=== PATIENT | male | born 1930 | race Caucasian/White ===

== ENCOUNTER → 2016-08-13 | Outpatient (CLI) | payer MEDICARE, BC | LOC: GMAL 11:20 | PROVIDERS: ATTEND Family Medicine | DX: D53.9 Nutritional anemia, unspecified (principal) ==

== ENCOUNTER → 2016-08-23 | Outpatient (CLI) | payer MEDICARE | END | disposition home or self-care (01) | LOC: GMAL 18:12 | PROVIDERS: ATTEND Family Medicine | DX: R33.9 Retention of urine, unspecified (principal) ==

== ENCOUNTER → 2016-11-14 | Outpatient (CLI) | payer MEDICARE | LOC: GMAL 10:34 | PROVIDERS: ATTEND Family Medicine | DX: E55.9 Vitamin D deficiency, unspecified (principal) ==

== ENCOUNTER → 2016-12-05 | Outpatient (CLI) | payer MEDICARE | END | disposition home or self-care (01) | LOC: GMAL 10:34 | PROVIDERS: ATTEND Family Medicine | DX: D53.9 Nutritional anemia, unspecified (principal) ==

== ENCOUNTER → 2016-12-20 | Outpatient (CLI) | payer MEDICARE | END | disposition home or self-care (01) | LOC: GMAL 10:42 | PROVIDERS: ATTEND Family Medicine | DX: D51.3 Other dietary vitamin B12 deficiency anemia (principal); E55.9 Vitamin D deficiency, unspecified ==

== ENCOUNTER → 2017-01-14 | Outpatient (CLI) | payer MEDICARE | END | disposition home or self-care (01) | LOC: GMAL 14:04 | PROVIDERS: ATTEND Family Medicine | DX: D53.9 Nutritional anemia, unspecified (principal) ==

== ENCOUNTER 2017-04-03 18:20 | Inpatient (IN) | payer MEDICARE ==
--- NOTE | 2017-04-03 19:31 | ED.PDOC ---
History of Present Illness - General Chief Complaint: General Stated Complaint: generalized weakness Time Seen by Provider: 04/03/17 18:21 Source: patient, RN notes reviewed, Vital Signs reviewed, family - Exam Limitations: no limitations - History of Present Illness Initial Comments: Patient is a poor historian. He reports progressively worsening weakness over the past week. Reports before EMS came to his house his daughter had to call people over to get him up off the floor. Unclear exactly how he ended up on the floor. Reports he was using his walker and just could not pick it up and move it any more. Denies a fall or injuries. reports he was slurring his words and unable to finish his sentences while on the phone with his daughter. He reports chronic anemia. He is scheduled to get a procrit shot tomorrow. Review of his chart also shows frequent urinary tract infections. Timing/Duration: 1 week, getting worse Severity: severe Improving Factors: nothing Worsening Factors: movement Associated Symptoms: cough, fever/chills, loss of appetite, malaise, weakness Allergies/Adverse Reactions: Allergies Morphine Allergy (Verified 03/30/16 12:07) Penicillin G Allergy (Verified 03/30/16 12:07) Procaine [From Novocain] Allergy (Verified 03/30/16 12:07) Home Medications: Ambulatory Orders Allopurinol [Zyloprim] 40 mg PO DAILY 03/29/16 Aspirin [Aspirin Childrens] 81 mg PO DAILY 03/29/16 Diltiazem HCl 150 mg PO BEDTIME 03/29/16 Fe Fum-Iron Polysacch Complex- [Tandem Plus] 1 cap PO BARRY-OTH-03/29/16 Metoprolol Succinate [Metoprolol Succinate ER] 50 mg PO DAILY 03/29/16 Review of Systems - Review of Systems Constitutional: States: chills, fever, malaise, weakness EENTM: States: no symptoms reported Respiratory: States: cough. Denies: short of breath, stridor Cardiology: States: no symptoms reported. Denies: chest pain Gastrointestinal/Abdominal: States: no symptoms reported. Denies: nausea, vomiting Genitourinary: States: no symptoms reported Musculoskeletal: States: no symptoms reported Skin: States: no symptoms reported Neurological: States: see HPI. Denies: headache All other Systems: No Change from Baseline Past Medical History (General) - Patient Medical History Hx Seizures: No Hx Stroke: No Hx Dementia: No Hx Asthma: No Hx of COPD: No Hx Cardiac Disorders: Yes Hx Congestive Heart Failure: No Hx Pacemaker: No Hx Hypertension: Yes Hx Thyroid Disease: No Hx Diabetes: No Hx Gastroesophageal Reflux: No Hx Renal Disease: No Hx Cancer: Yes - Prostate Cancer Hx of HIV: No Hx Hepatitis C: No Hx MRSA: No MRSA Source:: Wound - Vaccination History Hx Tetanus, Diphtheria Vaccination: Yes Hx Influenza Vaccination: Yes Hx Pneumococcal Vaccination: Yes - Social History Hx Tobacco Use: Yes Hx Chewing Tobacco Use: No Hx Alcohol Use: No Hx Substance Use: No Hx Substance Use Treatment: No Hx Depression: No Feels Threatened In Home Enviroment: No Feels Threatened In a Relationship: No Hx Physical Abuse: No Hx Emotional Abuse: No Hx Suspected Abuse: No Family Medical History - Family History Father Family History: Unknown Living Status: Physical Exam - Physical Exam General Appearance: Alert, Frail, Ill Appearing, Well Developed, Well Groomed, Well Nourished Neck: non-tender, supple, normal inspection Respiratory: chest non-tender, no respiratory distress, no accessory muscle use , rhonchi, wheezing Cardiovascular/Chest: no gallop, no murmur, irregularly irregular - Denies hx of A. fib but reports long hx of an irregular heart rhythm Gastrointestinal/Abdominal: normal bowel sounds, non tender, soft, no organomegaly, no pulsatile mass Extremity: normal inspection Neurologic: alert, normal mood/affect, oriented x 3 Skin Exam: normal color, warm/dry Comments: Vital Signs 04/03/17 18:22 Temperature 101.8 F H Pulse Rate [ 96 H monitor] Respiratory 16 Rate Blood Pressure 184/93 [Left Arm] O2 Sat by Pulse 90 L Oximetry Progress - Progress Progress: 04/03/17 23:14 Discussed patient with Ela Marin NP - will admit for pneumonia - Results/Orders Results/Orders: Laboratory Tests 04/03/17 04/03/17 04/03/17 18:12 18:12 20:01 WBC 21.9 H* RBC 2.54 L Hgb 9.0 L Hct 28.0 L MCV 110.1 H MCH 35.4 H MCHC 32.2 L RDW 15.5 H Plt Count 267 MPV 7.7 Absolute Neuts (auto) Not Reportable Absolute Lymphs (auto) Not Reportable Absolute Monos (auto) Not Reportable Absolute Eos (auto) Not Reportable Neutrophils % Not Reportable Neutrophils % (Manual) 68.0 Lymphocytes % Not Reportable Lymphocytes % (Manual) 7.0 Monocytes % Not Reportable Monocytes % (Manual) 10.0 Eosinophils % Not Reportable Basophils % Not Reportable Band Neutrophils 15.0 Platelet Estimate Normal Macrocytosis 1+ Sodium 135 Potassium 3.2 L Chloride 99 L Carbon Dioxide 24 Anion Gap 15.2 BUN 38 H Creatinine 1.75 H BUN/Creatinine Ratio 21.7 H Random Glucose 135 H Serum Osmolality 281.2 Lactic Acid 1.7 Calcium 8.8 Total Bilirubin 0.7 AST 40 ALT 14 Alkaline Phosphatase 68 Serum Total Protein 9.1 H Albumin 3.4 Globulin 5.7 H Albumin/Globulin Ratio 0.6 L Urine Color Urine Appearance Urine pH Ur Specific [place] Urine Protein Urine Glucose (UA) Urine Ketones Urine Blood Urine Nitrite Urine Bilirubin Urine Urobilinogen Ur Leukocyte Esterase Urine RBC Urine WBC Ur Epithelial Cells Urine Bacteria 04/03/17 22:35 WBC RBC Hgb Hct MCV MCH MCHC RDW Plt Count MPV Absolute Neuts (auto) Absolute Lymphs (auto) Absolute Monos (auto) Absolute Eos (auto) Neutrophils % Neutrophils % (Manual) Lymphocytes % Lymphocytes % (Manual) Monocytes % Monocytes % (Manual) Eosinophils % Basophils % Band Neutrophils Platelet Estimate Macrocytosis Sodium Potassium Chloride Carbon Dioxide Anion Gap BUN Creatinine BUN/Creatinine Ratio Random Glucose Serum Osmolality Lactic Acid Calcium Total Bilirubin AST ALT Alkaline Phosphatase Serum Total Protein Albumin Globulin Albumin/Globulin Ratio Urine Color Yellow Urine Appearance Clear Urine pH 5.5 Ur Specific [place] 1.015 Urine Protein 100 H Urine Glucose (UA) Negative Urine Ketones Negative Urine Blood Moderate H Urine Nitrite Negative Urine Bilirubin Negative Urine Urobilinogen 0.2 Ur Leukocyte Esterase Negative Urine RBC 3-5 H Urine WBC 0 Ur Epithelial Cells 0-1 Urine Bacteria Rare - EKG/XRAY/CT EKG: Atrial, Fibrillation, nonspecific ST T wave Chg Comments: Rate 95 XRAY: chest - Moderate infiltrate/atelectasis L lingula and LLL per Radiologist Departure - Departure Clinical Impression: Pneumonia Qualifiers: Pneumonia type: due to unspecified organism Laterality: left Lung location: lower lobe of lung Qualified Code(s): J18.1 - Lobar pneumonia, unspecified organism Time of Disposition: 23:15 Disposition: Admit Patient Condition: Poor Departure Forms: ED Discharge - Pt. Copy, Patient Portal Self Enrollment Referrals: Ari Moya III, MD [Primary Care Provider] - 1-2 Weeks Home Medications: Ambulatory Orders Allopurinol [Zyloprim] 40 mg PO DAILY 03/29/16 Aspirin [Aspirin Childrens] 81 mg PO DAILY 03/29/16 Diltiazem HCl 150 mg PO BEDTIME 03/29/16 Fe Fum-Iron Polysacch Complex- [Tandem Plus] 1 cap PO BARRY-OTH-DAY 03/29/16 Metoprolol Succinate [Metoprolol Succinate ER] 50 mg PO DAILY 03/29/16 Decision To Admit - Decistion To Admit Decision to Admit Reason: Admit from ER - Pneumonia Decision to Admit Date: 04/03/17 Decision to Admit Time: 23:03
[2017-04-03] MEDS ORDERED: ACETAMINOPHEN 500 MG TAB PO ONE (19:36)
--- NOTE | 2017-04-03 19:55 | RAD ---
PROCEDURE: Chest,2 Views CLINICAL HISTORY: cough/fever INDICATION: Same as above COMPARISON: 10/19/2009 TECHNIQUE: PA and and lateral chest radiographs were obtained. FINDINGS: There is presence of median sternotomy. Stable elevation of the left hemidiaphragm is noted. There is presence of moderate size infiltrate/atelectasis in the lingula of the left lung and the left lower lobe of the lung There are no pneumothoraces or pleural effusions. The pulmonary vascularity is normal The cardiomediastinal silhouette is unremarkable for patient's age and sex. IMPRESSION: There is presence of moderate size infiltrate/atelectasis in the lingula of the left lung and the left lower lobe of the lung Electronically signed by: Aubrey Gonzalez MD 04/03/2017 7:54 PM CDT Workstation: [id number]
[2017-04-03] MEDS ORDERED: SODIUM CHLORIDE 0.9% 1000ML 1,000 ML IVS PRN (20:27)
[2017-04-03] MEDS ORDERED: SODIUM CHLORIDE 0.9% 1000ML 1,000 ML ONE (20:28)
--- NOTE | 2017-04-03 23:26 | HP ---
SUPERVISING PHYSICIAN: Irving Clements M.D. CHIEF COMPLAINT: Extreme weakness. HISTORY OF PRESENT ILLNESS: This is an 86 year-old male patient who approximately 5:00 PM on the date of admission had a slight change in his mental status. His reported that he spoke very slowly and his words were not very clear. He has had multiple episodes of slurred/garbled speech over the last few months as reported by patient's daughter. He had a complaint of weakness for a week or two as well as poor oral intake and anorexia. The extreme weakness has progressively worsened over the last several days. He also complained of some upper respiratory symptoms with a productive cough and nasal drainage. He had some chest congestion and stated he just has felt poorly over the last few weeks and it had progressively worsened to the point yesterday where they brought him to the Emergency Room. He does have a history of chronic anemia as well as frequent urinary tract infections with hematuria and multidrug resistant urinary tract infections. In the Emergency Room, it was difficult to get a history from him and he was given several liters of fluids. Initially he did not urinate for several hours. There was an attempt to pass a catheter which was unsuccessful, but at some point he was able to give them a urine specimen. The urinalysis showed 100 urine protein, moderate urine blood and 3 to 5 urine RBCs. The remainder of the urinalysis was negative. He had 101.8 fever. His blood pressure was 184/93, oxygen saturation was 90% on 2 liters nasal cannula. Chest x-ray per radiology interpretation showed the presence of a moderate sized infiltrate, atelectasis in the lingula of the left lung and the left lower lobe of the lung. WBCs were elevated at 21,900 with an H&H of 9.0 and 28. Sodium 135, potassium 3.2, chloride 99, BUN 38, creatinine 1.75, glucose 135. Lactic acid was 1.7. Blood cultures were drawn. His mental status improved slightly. I was called for hospital admission. PAST MEDICAL HISTORY: 1. Hypertension. 2. Indigestion. 3. Chronic anemia on Procrit. 4. Frequent urinary tract infections. 5. Chronic hematuria followed by Dr. Flowers, urologist. 6. Atrial fibrillation. 7. Gout. 8. Essential tremors. PAST SURGICAL HISTORY: 1. Coronary artery bypass graft. OUTPATIENT MEDICATIONS: Per the EMR and awaiting verification. ALLERGIES: PENICILLIN AND MORPHINE. SOCIAL HISTORY: He is . He lives in [place]. He stopped smoking about 8 years ago. He denies any ETOH or illicit drug use. REVIEW OF SYSTEMS: Positive for fatigue and fever. Negative for weight changes. HEENT: Positive for sinus symptoms throat drainage. Negative for ear pain or vision changes. RESPIRATORY: Positive for coughing. Negative for wheezing and shortness of breath. CARDIAC: Negative for chest pain, tachycardia or palpitations. GASTROINTESTINAL: Positive for anorexia. Negative for abdominal pain, nausea, vomiting or diarrhea. GENITOURINARY: Positive for polyuria and hematuria. Negative for dysuria. SKIN: Negative for lesions or rashes. NEUROLOGIC: Positive for dizziness and weakness. Negative for seizures or headaches. PHYSICAL EXAMINATION: VITAL SIGNS: Temperature 97.6, pulse rate 85, blood pressure 155/85, respiratory rate 16. O2 sat is 93% on 2 liters nasal cannula. GENERAL: This is an 86 year-old male patient lying in his hospital bed. He is in no acute distress. HEENT: Normocephalic and atraumatic. Pupils are equal and reactive. Oropharynx is clear. Oral mucous membranes are dry. NECK: Supple without mass. CHEST: Scattered rhonchi throughout with an occasional expiratory wheeze in the left lower and mid lung. There is equal rise and fall of the chest with inspiration and expiration. CARDIOVASCULAR: Regular rate, slightly irregular rhythm. ABDOMEN: Soft, nondistended, non-tender. Bowel sounds are positive. EXTREMITIES: No cyanosis, clubbing or edema. NEUROLOGIC: He is awake, alert and oriented times three. SKIN: Warm and dry. No lesions or rashes noted. LABORATORY: Labs and films are as per the history of present illness. ASSESSMENT: 1. Sepsis, most likely due to left lower lobe pneumonia most likely community acquired pneumonia with concerns for Streptococcus pneumoniae. Temp of 101.8. HR 96 bpm. Respiratory rate of 24. Leukocytosis with a WBC of 21,900. 2. Febrile illness with temperature to 101.8. 3. Leukocytosis. 4. Significant history of multidrug resistant urinary tract infections as well as an extensive history of hematuria followed by Dr. Kevin Flowers, urologist. 5. Hematuria. 6. Altered mental status most likely due to #1 and #2. 7. Gastroesophageal reflux disease. 8. Hypertension. 9. History of atrial fibrillation. 10. New onset of slurred speech and TIA symptoms. PLAN: We will admit the patient to the hospital. He will be started on Levaquin antibiotics until his cultures are available. I have also ordered a sputum culture as well as culture on his urine. I have ordered a Xopenex treatment and will restart his home medications as soon as they are verified. Repeat the lab in the morning as well as a chest x-ray. We will give him some gentle fluids. He will be placed on a radiation monitor as well as oxygen as needed. I have started a PPI for ulcer prophylaxis as well as Lovenox for DVT prophylaxis. At some point will do a carotid sonogram due to TIA symptoms. I will continue to monitor the patient closely and follow as needed. Dr. Clements is the collaborating physician available for consultation. [facility][id number] [facility]
[2017-04-03] MEDS ORDERED: SODIUM CHLORIDE 0.9% (FLUSH) 10 ML SYG IV PRN (23:50)
[2017-04-03] MEDS ORDERED: LEVALBUTEROL NEBS 1.25 MG/3 ML VIAL NEB PRN (23:50)
[2017-04-04] MEDS: PANTOPRAZOLE SODIUM IV 40 MG VIAL IV SCH ×2 (00:05→23:23)
[2017-04-04] MEDS: ENOXAPARIN SODIUM 40 MG/0.4 ML SYG SUBCU SCH ×2 (00:05→23:33)
[2017-04-04] MEDS: levoFLOXacin 750MG IV 750 MG in PREMIX BAG 1 BAG IVPB SCH ×3 (00:14→23:26)
[2017-04-04] MEDS: IV SET AND CAP CHANGE INJ INJ SCH (00:14)
--- NOTE | 2017-04-04 07:20 | RAD ---
EXAM DESCRIPTION: Chest,1 View CLINICAL HISTORY: Pneumonia COMPARISON: April 03, 2017 IMPRESSION: Single AP portable upright view of the chest shows enlargement of the cardiac silhouette without pulmonary vascular congestion. Postsurgical changes from sternotomy. Elevation of the left hemidiaphragm is seen. Interstitial infiltrate or atelectasis in the left lower lobe is similar to previous exam. Continued follow-up is recommended. Right lung is clear. Electronically signed by: Jackson Rich MD 04/04/2017 7:19 AM CDT
[2017-04-04] MEDS: IPRATROPIUM/ALBUTEROL 3 ML VIAL NEB SCH ×2 (08:14→13:35)
[2017-04-04] MEDS: SODIUM CHLORIDE 0.9% (FLUSH) 10 ML SYG IV SCH ×2 (10:38→20:44)
[2017-04-04] MEDS ORDERED: NON-FORMULARY MEDICATION 1 EA MIS (Propranolol Hcl [Propranolol Hcl] 40 MG) PO SCH (11:45)
[2017-04-04] MEDS ORDERED: PROPRANOLOL HCL 20 MG TAB ONE (12:01)
[2017-04-04] MEDS: diltiaZEM HCL TAB 30 MG TAB PO SCH ×2 (12:06→20:41)
[2017-04-04] MEDS: ALLOPURINOL 300 MG TAB PO SCH (12:06)
--- NOTE | 2017-04-04 14:50 | PCM.CORE ---
Physician DVT/VTE - Prophylaxis Currently: Patient already on anticoagulation therapy - Nurse DVT Assessment & Total Each Risk Factor Represents 3 Points: Age over 75 years, Medical PT with Hx of NC, CHF, Severe infection/sepsis Each Risk Factor Represents 1 Point: Medical PT at Bed Rest DVT Assessment Score: 7 - 5 or more Very High Risk Treatments: Early Ambulation *, Sequential Compression Device
[2017-04-04] MEDS ORDERED: POTASSIUM CHLORIDE 20 MEQ TAB PO ONE (15:24)
[2017-04-04] MEDS: methylPREDNISolone SODIUM SUC 125 MG/2 ML VIAL IV SCH ×2 (17:12→23:13)
--- NOTE | 2017-04-04 17:13 | PN ---
DATE: 04/04/17 SUPERVISING PHYSICIAN: Irving Clements M.D. SUBJECTIVE: The patient is sitting up in his bed. He is talking to his family. His daughter and are at bedside. His daughter is concerned that he has had some slurred speech and weakness that started several months ago and is concerned that he may be having stroke-like symptoms. At this point, the patient has no slurred speech. We discussed at length stroke-like symptoms and we will monitor for that. He denies chest pain, nausea, vomiting or constipation. He does say that he is still coughing and it is a dry hacking cough. Otherwise he does feel some better. OBJECTIVE: VITAL SIGNS: He is afebrile, heart rate is irregular. It ranges from 77 to 97. Blood pressure 111/61, respiratory rate 24, O2 sat is 94%. RESPIRATORY: Scattered rhonchi throughout all lung willett with some expiratory wheezing in the left lower lung willett. CARDIAC: Regular rate, slightly irregular rhythm. ABDOMEN: Soft, nondistended, non-tender. Bowel sounds are positive. EXTREMITIES: No cyanosis, clubbing or edema. NEUROLOGIC: He is awake , alert and oriented times three. LABORATORY: WBCs have improved to 17,300. Hemoglobin is 8.2 and 25.3. Platelets are 227. Sodium 132, potassium 3.1, chloride 101, carbon dioxide 24, BUN 30, creatinine has improved to 1.16, glucose 96, serum osmolality 270.6, calcium 7.9. Sputum and urine culture are pending. Sputum gram stain shows many WBCs, many gram positive cocci in pairs and moderate gram-negative rods. Preliminary blood cultures are negative to date. Influenza A and B by PCR is negative. Chest x-ray per radiology interpretation upright view of the chest shows enlargement of the cardiac silhouette without pulmonary vascular congestion, post surgical changes from sternotomy, elevation of the left hemidiaphragm is seen, interstitial infiltrate or atelectasis in the left lower lobe similar to previous exam. Continued followup is recommended. Right lung is clear. All other labs and films have been reviewed via the EMR. ASSESSMENT: 1. Sepsis, most likely due to left lower lobe pneumonia most likely community acquired pneumonia with concerns for Streptococcus pneumoniae. Temp of 101.8. HR 96 bpm. Respiratory rate of 24. Leukocytosis with a WBC of 21,900. 2. Febrile illness with temperature to 101.8. 3. Leukocytosis. 4. Significant history of multidrug resistant urinary tract infections as well as an extensive history of hematuria followed by Dr. Kevin Flowers, urologist. 5. Hematuria. 6. Altered mental status most likely due to #1 and #2. 7. Gastroesophageal reflux disease. 8. Hypertension. 9. History of atrial fibrillation. 10. New onset of slurred speech and TIA symptoms. PLAN: We will continue present supportive care. I have ordered lab and a chest x-ray in the morning. I have also added a low dose of steroid of 60 mg every 6 hours. I will need to taper that tomorrow. I have also given him an extra dose of potassium. I have ordered some Mucinex. I have also ordered a carotid ultrasound to be done tomorrow. It is to be noted that today he was supposed to get his Procrit injection. He will need to followup with his Procrit on discharge. Will continue on Levaquin for now. Monitor cultures closely. I have encouraged good pulmonary hygiene. He will need an ambulation study in the next day or so once he gets a little bit stronger. Will continue to monitor him closely and followup as needed. Dr. Clements is the collaborating physician available for consultation. #[id number] [facility]
[2017-04-04] MEDS: TIOTROPIUM INHALER INH SCH ×2 (17:26→21:35)
[2017-04-04] MEDS: LEVALBUTEROL NEBS 1.25 MG/3 ML VIAL NEB SCH (19:40)
[2017-04-04] MEDS: PROPRANOLOL HCL 20 MG TAB PO SCH (20:40)
[2017-04-04] MEDS: SIMVASTATIN 10 MG TAB PO SCH (20:40)
[2017-04-04] MEDS: guaiFENesin ER TAB 600 MG TAB PO SCH (20:41)
[2017-04-05] MEDS: methylPREDNISolone SODIUM SUC 125 MG/2 ML VIAL IV SCH ×2 (04:21→10:30)
[2017-04-05] MEDS: TIOTROPIUM INHALER INH SCH (08:30)
[2017-04-05] MEDS: LEVALBUTEROL NEBS 1.25 MG/3 ML VIAL NEB SCH ×4 (08:30→21:54)
[2017-04-05] MEDS: guaiFENesin ER TAB 600 MG TAB PO SCH ×2 (10:07→21:31)
[2017-04-05] MEDS: ALLOPURINOL 300 MG TAB PO SCH (10:07)
[2017-04-05] MEDS: diltiaZEM HCL TAB 30 MG TAB PO SCH ×2 (10:07→21:31)
[2017-04-05] MEDS: PROPRANOLOL HCL 20 MG TAB PO SCH ×2 (10:09→23:30)
[2017-04-05] MEDS: SODIUM CHLORIDE 0.9% (FLUSH) 10 ML SYG IV SCH ×2 (10:09→21:32)
[2017-04-05] MEDS: TELMISARTAN HYDROCHLOROTHIAZID PO SCH (10:12)
[2017-04-05] MEDS: PANTOPRAZOLE SODIUM TAB 40 MG PO SCH (11:11)
[2017-04-05] MEDS ORDERED: INSULIN LISPRO 100 UNITS/ML PEN SUBCU SCH (11:30)
[2017-04-05] MEDS: BIFIDOBACTERIUM INFANTIS 4 MG CAP PO SCH (11:33)
--- NOTE | 2017-04-05 11:43 | US ---
EXAM DESCRIPTION: Carotid Duplex CLINICAL HISTORY: slurred speech and weakness COMPARISON: None Available. TECHNIQUE: Carotid Doppler ultrasound utilizing grayscale, color Doppler, and spectral pulse Doppler imaging. FINDINGS: On the right, intimal thickening and soft plaque within the tortuous common carotid artery is present with mild focal plaque at the origin of the ECA and shadowing mixed calcific and soft plaque at the origin of the ICA. Peak right CCA velocities are 88/20 cm/s. Spectral broadening with antegrade flow in the external carotid artery is present. Peak ICA velocities are 40/10 cm/s. Any rate flow in the vertebral artery is noted. On the left, intimal thickening in the CCA is present with dense shadowing plaque at the origin of the ICA. Peak CCA velocities are 62/11 cm/s peak ICA velocities are 72/10 cm/s. Antegrade flow in the external carotid artery with mild spectral broadening is present with antegrade flow noted in the vertebral artery. The ICA/CCA ratio is 0.5 on the right and 1.2 on the left. No significant diameter stenosis of either ICA origin is noted. 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 No hemodynamically significant stenosis noted. Antegrade flow both vertebrals. Electronically signed by: Irving Escalante MD 04/05/2017 11:41 AM CDT
--- NOTE | 2017-04-05 17:43 | PN ---
DATE: 04/05/17 SUPERVISING PHYSICIAN: Irving Clements M.D. SUBJECTIVE: The patient is resting in bed. He just had a physical therapy evaluation. He notes that he is feeling a little bit better since he came in, but continues to be significantly weakened. He remains afebrile. OBJECTIVE: VITAL SIGNS: T max 98.5, pulse 55, blood pressure 143/75, respirations 20, satting 94% on room air. I's and O's show the patient to have multiple voids not measured. His weight today is 73.3 kg. CHEST: Lungs no notable wheezing today. There continues to be some faint rhonchi heard towards the posterolateral left side. The right side is fairly clear. HEART: Slightly irregular rate and rhythm. ABDOMEN: Soft, non-tender. Positive bowel sounds. EXTREMITIES: No clubbing, cyanosis or edema. NEUROLOGIC: He is alert and oriented times three. LABORATORY: White count today is normalize at 10.6, hemoglobin is up compared to yesterday, it is 8.4, hematocrit 24.6, platelet count 220,000. Differential shows to be without a left shift. Chemistries show normal electrolytes. Potassium 3.7, sodium is now normalized, BUN 25 which is down from admission of 38, creatinine is now normalized at 1.20, calcium 8.3, magnesium is low at 1.6. Liver functions show to be within normal limits. MICROBIOLOGY: Sputum culture preliminary shows need for further incubation. Urine culture preliminary shows insignificant colony count of mixed muna. Blood cultures remain negative at 24 hours. RADIOLOGY: Carotid artery studies bilaterally per radiology interpretation shows moderate bilateral atherosclerosis involving both carotid bifurcations as well as the origin in the right external carotid artery with no hemodynamically significant stenosis noted. ASSESSMENT: 1. Sepsis due to left lower lobe pneumonia community acquired with the patient showing good clinical response with IV antibiotics now with a normalized white count. 2. Febrile illness along with a leukocytosis secondary to #1 showing normalization after initiation of IV therapy and fluids. 3. Significant history of multidrug urinary tract infections with history of hematuria followed by Dr. Flowers with current urine showing continued hematuria but culture showing mixed muna. 4. Altered mental status on admission secondary to #1 and #2. 5. Gastroesophageal reflux disease. 6. Hypertension. 7. History of atrial fibrillation with controlled ventricular rate. 8. New onset of some slurred speech and transient ischemic attack-like symptoms with carotid artery studies showing no significant stenosis. 9. Microcytic hypochromic anemia of chronic illness with the patient on chronic Epogen. 10. Hypomagnesemia. PLAN: The patient will benefit from an additional 24 hours of antibiotics. His white count is now normalized today to allow further incubation of blood cultures and again more antibiotic therapy. He did have physical therapy evaluation today. Will need ongoing physical therapy for strengthening. Will plan to replaced his magnesium today with 2 grams of IV magnesium and recheck in the morning. The patient has made himself a DNR. This paperwork had been completed and signed. He is due an Epogen shot which he normally gets at the [facility], however the patient is stable and can receive a shot should he need it upon discharge next week. Again, will continue to monitor his H&H closely and if need be provide replacement with transfusion. At this point, the patient appears to be stable in regards to his H&H. Will continue with IV antibiotic therapy with Levaquin. He did receive 4 doses of Solu-Medrol. Will continue this with 40 every 12 hours starting tonight at 2200. Will anticipate discharge either tomorrow or Saturday depending on how he does with his physical therapy evaluation and possible need for ongoing rehabilitation and re- strengthening. Until discharge, will continue to monitor and treat appropriately. #[id number] [facility]
[2017-04-05] MEDS ORDERED: levoFLOXacin 250MG IV 50 ML IVPB ONE (20:04)
[2017-04-05] MEDS: ENOXAPARIN SODIUM 40 MG/0.4 ML SYG SUBCU SCH (21:31)
[2017-04-05] MEDS: methylPREDNISolone SODIUM SUC 40 MG/ML VIAL IV SCH (21:33)
[2017-04-05] MEDS: SIMVASTATIN 10 MG TAB PO SCH (21:37)
[2017-04-05] MEDS: levoFLOXacin 250MG IV 250 MG in PREMIX BAG 1 BAG IVPB SCH (22:49)
[2017-04-06] MEDS: PANTOPRAZOLE SODIUM TAB 40 MG PO SCH (06:03)
--- NOTE | 2017-04-06 08:10 | RAD ---
PROCEDURE: Chest,2 Views CLINICAL HISTORY: pneumonia INDICATION: Same as above COMPARISON: 04/04/2017 TECHNIQUE: PA and and lateral chest radiographs were obtained. 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 There is no significant interval change in the left lingula and lower lobe infiltrate/atelectasis Stable elevation of the left hemidiaphragm is noted. There is no pleural effusion or pneumothorax The pulmonary vascularity is normal The cardiomediastinal silhouette is stable. IMPRESSION: There is no significant interval change in the left lingula and lower lobe infiltrate/atelectasis Electronically signed by: Aubrey Gonzalez MD 04/06/2017 8:08 AM CDT Workstation: [id number]
[2017-04-06] MEDS: LEVALBUTEROL NEBS 1.25 MG/3 ML VIAL NEB SCH ×4 (08:49→19:57)
[2017-04-06] MEDS: TIOTROPIUM INHALER INH SCH (08:50)
[2017-04-06] MEDS: BIFIDOBACTERIUM INFANTIS 4 MG CAP PO SCH (09:27)
[2017-04-06] MEDS: ALLOPURINOL 300 MG TAB PO SCH (09:27)
[2017-04-06] MEDS: TELMISARTAN HYDROCHLOROTHIAZID PO SCH (09:27)
[2017-04-06] MEDS: diltiaZEM HCL TAB 30 MG TAB PO SCH ×2 (09:27→21:09)
[2017-04-06] MEDS: PROPRANOLOL HCL 20 MG TAB PO SCH ×2 (09:27→21:10)
[2017-04-06] MEDS: methylPREDNISolone SODIUM SUC 40 MG/ML VIAL IV SCH (09:27)
[2017-04-06] MEDS: guaiFENesin ER TAB 600 MG TAB PO SCH ×2 (09:27→21:10)
[2017-04-06] MEDS: SODIUM CHLORIDE 0.9% (FLUSH) 10 ML SYG IV SCH ×2 (09:28→21:11)
--- NOTE | 2017-04-06 16:15 | PN ---
DATE: 04/06/17 SUPERVISING PHYSICIAN: Irving Clements M.D. SUBJECTIVE: The patient is sitting in the bedside chair. He says he feels better today. He does continue to be weak and is continuing to work with Physical Therapy. He remains afebrile. OBJECTIVE: VITAL SIGNS: Temperature 97.9 T max, pulse 82, blood pressure 148/84 , respirations 20 to 22, satting 90% on room air at rest. I's and O's show multiple voids not measured. Weight is 70.4 kg which actually is down from admission of 72.9 kg. CHEST: Lung sounds are not improved from previous days. He does continue to have just faint rhonchi heard overlying the posterior left side chest wall. HEART: Slightly irregular rate and rhythm. ABDOMEN: Soft, non -tender. Positive bowel sounds. EXTREMITIES: No clubbing, cyanosis or edema. NEUROLOGIC: He is alert and oriented times three. LABORATORY: White count continues to be within normal limits at 10,800 with hemoglobin showing to be stable at 8.5 and 25.8 with platelet count 215,000. Differential is now normalized. Chemistries show persistent hyponatremia and hypokalemia despite normalization yesterday. Today, his potassium is 3.4, sodium is down to 132. BUN is up slightly at 37, creatinine is up to 1.4, calcium is normal at 8.5. MICROBIOLOGY: Blood cultures remain negative at 48 hours. Urine culture final report shows insignificant colony count of mixed muna. Sputum culture showed no muna at 48 hours. RADIOLOGY: Chest x-ray two view chest today per radiology interpretation showed no significant interval changes in the left lung lingula and left lower lobe infiltrate. ASSESSMENT: 1. Sepsis on admission due to left lower lobe pneumonia community acquired with the patient continuing to show good clinical response without any continued IV Levaquin with white count now normalized. 2. Febrile illness along with leukocytosis secondary to #1 continuing to show stabilization after initiation of IV therapy and fluids. 3. Significant history of multidrug urinary tract infection with history of hematuria as well followed by Dr. Flowers with current urine culture finalization showing only mixed muna. 4. Altered mental status on admission secondary to #1 and #2 now improved. 5. Mild renal insufficiency likely secondary to large dose of Levaquin which has since been dose for renal function. 6. History of atrial fibrillation with continued controlled ventricular rate. 7. Questionable transient ischemic attack with some notable slurred speech on admission which has not been present in the last 48 hours as well as coronary artery studies showing no significant stenosis. 8. Microcytic hypochromic anemia of chronic illness with the patient currently on chronic Epogen but showing to have a stable H&H. 9. Hypomagnesemia, improved. PLAN: The patient continues to show good improvement clinically. He is weak and will need some physical therapy. Will continue with IV antibiotics of Levaquin once it has been renal dosed taking into account his renal function. Will plan to relaunch her laboratory studies in the morning to closely monitor his renal function again. At this point, his H&H appears to be stable. I did discuss with him his Epogen dosing which can be done at time of discharge and should he show any decrease in his blood count, certainly we will consider transfusion of packed red blood cells if appropriate. Will anticipate possibly discharging tomorrow or at least on Saturday. Again, the patient continues to show good clinical improvement and will need ongoing antibiotic therapy at time of discharge. He is continued on Solu-Medrol daily now 40 mg to transition to p.o. in the morning of Prednisone. Until discharge, will continue to monitor and treat appropriately. #[id number] [facility]
[2017-04-06] MEDS ORDERED: levoFLOXacin 250MG IV 50 ML IVPB ONE (19:41)
[2017-04-06] MEDS: ENOXAPARIN SODIUM 40 MG/0.4 ML SYG SUBCU SCH (21:10)
[2017-04-06] MEDS: SIMVASTATIN 10 MG TAB PO SCH (21:10)
[2017-04-06] MEDS: levoFLOXacin 250MG IV 250 MG in PREMIX BAG 1 BAG IVPB SCH (23:17)
[2017-04-06] MEDS: IV SET AND CAP CHANGE INJ INJ SCH (23:17)
[2017-04-07] MEDS: PANTOPRAZOLE SODIUM TAB 40 MG PO SCH (06:05)
[2017-04-07] MEDS ORDERED: predniSONE 10 MG TAB ONE (07:26)
[2017-04-07] MEDS: LEVALBUTEROL NEBS 1.25 MG/3 ML VIAL NEB SCH ×4 (08:44→19:40)
[2017-04-07] MEDS: TIOTROPIUM INHALER INH SCH (08:45)
[2017-04-07] MEDS ORDERED: MAGNESIUM SULFATE PREMIX 2GM 2 GM in PREMIX BAG 1 BAG IVPB ONE (08:56)
[2017-04-07] MEDS ORDERED: predniSONE 10 MG TAB PO SCH (09:00)
[2017-04-07] MEDS ORDERED: MAGNESIUM SULFATE PREMIX 2GM 50 ML IVPB ONE (09:26)
[2017-04-07] MEDS: diltiaZEM HCL TAB 30 MG TAB PO SCH ×2 (09:42→20:39)
[2017-04-07] MEDS: guaiFENesin ER TAB 600 MG TAB PO SCH ×2 (09:42→20:39)
[2017-04-07] MEDS: BIFIDOBACTERIUM INFANTIS 4 MG CAP PO SCH (09:42)
[2017-04-07] MEDS: ALLOPURINOL 300 MG TAB PO SCH (09:43)
[2017-04-07] MEDS: PROPRANOLOL HCL 20 MG TAB PO SCH ×2 (09:43→20:39)
[2017-04-07] MEDS: TELMISARTAN HYDROCHLOROTHIAZID PO SCH (09:44)
--- NOTE | 2017-04-07 10:29 | RAD ---
PROCEDURE: Chest,2 Views CLINICAL HISTORY: pneumonia INDICATION: Same as above COMPARISON: 04/06/2017 TECHNIQUE: PA and and lateral chest radiographs were obtained. FINDINGS: Note is again made of median sternotomy and stable elevation of the left hemidiaphragm. Moderate size hiatal hernia is again noted There is no interval change in the left mid and lower lung zone infiltrate/atelectasis. There is no pleural effusion or pneumothorax The cardiomediastinal silhouette is stable. IMPRESSION: There is no interval change in the left mid and lower lung zone infiltrate/atelectasis Electronically signed by: Aubrey Gonzalez MD 04/07/2017 10:27 AM CDT Workstation: [id number]
[2017-04-07] MEDS: KCL 20 MEQ/NS 1,000 ML IVS PRN ×2 (11:00→21:25)
--- NOTE | 2017-04-07 18:26 | PN ---
DATE: 04/07/17 SUPERVISING PHYSICIAN: Irving Clements M.D. SUBJECTIVE: The patient is visiting with his family today sitting in the bedside chair. He remains weak. His appetite has been minimal today. He notes that he feels a little less improved today compared to yesterday, just overall generalized weakness. He does remain afebrile. He has had no nausea or vomiting. OBJECTIVE: VITAL SIGNS: T max 98.0, pulse 55, blood pressure 123/69, respirations 18, satting 94% on room air. I's and O's remain difficult to manage as he is incontinent but his weight is 71.7 kg. CHEST: Lungs are showing improvement, although she continues to have some rhonchi noted on the left posterior aspect. The right is fairly clear. HEART: Slightly irregular rate and rhythm. ABDOMEN: Soft, non-tender. Positive bowel sounds. EXTREMITIES: No clubbing, cyanosis or edema. NEUROLOGIC: He is alert and oriented times three. LABORATORY: White count did go up today to 14,600 with an increase in bands noted on differential. Hemoglobin and hematocrit are fairly stable at 8.2 and 25.3 with platelet count 223,000. Chemistries have normalized, electrolytes with potassium 3.9, sodium 136, BUN is up slightly up to 49, creatinine is down to 1.34, calcium 9.1, magnesium remains low at 1.7. RADIOLOGY: Chest x-ray noted no change in the mid and lower lung zone on the left per radiology interpretation. ASSESSMENT: 1. Sepsis due to left lower lobe pneumonia community acquired with the patient showing good clinical response after being initiated on IV Levaquin with white count initially normalizing, however has now shown again leukocytosis likely secondary to previous IV corticosteroid administration over the last 48 hours. 2. Febrile illness with leukocytosis secondary to number 1 showing some improvement initially with IV fluids and antibiotics. 3. Significant history of multidrug urinary tract infection with a history of hematuria as well as the patient is followed by Dr. Flowers with current urine culture showing only mixed muna. 4. Altered mental status on admission secondary to #1 and #2, improved. 5. Mild renal insufficiency likely secondary to large dose of Levaquin which has since been dosed on the renal function showing improvement with IV fluids as well. 6. History of atrial fibrillation with a controlled ventricular rate. 7. Questionable transient ischemic attack with some notable slurred speech on admission, however this has resolved within the last 72 hours. No new episodes have been noted and his coronary artery studies have shown no significant stenosis. 8. Microcytic hypochromic anemia of chronic illness with the patient currently on Epogen and showing to have a stable H&H. 9. Hypomagnesemia, improving with IV replacement. PLAN: The patient was hopefully to be discharged today, however given that his white count has once again gone up and he has increased bands, and has persisted in his weakness, the patient will certainly benefit from further 24 hour monitoring and IV antibiotics. Hopefully tomorrow if he is clinically stable and strong enough, we can discharge with arrangements for home health physical therapy. Will plan to replace his magnesium today and repeat laboratory studies in the morning in regards to the CBC and monitor closely. He has been stopped on any steroids as he is no longer having any significant wheezing which he has been off now for 24 hours. Will continue with aggressive pulmonary hygiene and close monitoring until discharge. #[id number] [facility]
[2017-04-07] MEDS ORDERED: levoFLOXacin 250MG IV 50 ML IVPB ONE (19:32)
[2017-04-07] MEDS: SIMVASTATIN 10 MG TAB PO SCH (20:39)
[2017-04-07] MEDS: ENOXAPARIN SODIUM 40 MG/0.4 ML SYG SUBCU SCH (20:39)
[2017-04-07] MEDS: levoFLOXacin 250MG IV 250 MG in PREMIX BAG 1 BAG IVPB SCH (22:42)
[2017-04-08] MEDS: PANTOPRAZOLE SODIUM TAB 40 MG PO SCH (06:02)
[2017-04-08] MEDS ORDERED: diphenhydrAMINE HCL 50 MG/ML VIAL IV ONE (06:47)
[2017-04-08] MEDS ORDERED: ACETAMINOPHEN 325 MG TAB PO ONE (06:47)
[2017-04-08] MEDS ORDERED: SODIUM CHLORIDE 0.9% 500ML 500 ML IVS SCH (07:00)
[2017-04-08] MEDS: BIFIDOBACTERIUM INFANTIS 4 MG CAP PO SCH (08:22)
[2017-04-08] MEDS: PROPRANOLOL HCL 20 MG TAB PO SCH ×2 (08:22→21:36)
[2017-04-08] MEDS: guaiFENesin ER TAB 600 MG TAB PO SCH ×2 (08:22→21:36)
[2017-04-08] MEDS: ALLOPURINOL 300 MG TAB PO SCH (08:22)
[2017-04-08] MEDS: diltiaZEM HCL TAB 30 MG TAB PO SCH ×2 (08:22→21:37)
[2017-04-08] MEDS: TELMISARTAN HYDROCHLOROTHIAZID PO SCH (08:23)
[2017-04-08] MEDS: LEVALBUTEROL NEBS 1.25 MG/3 ML VIAL NEB SCH ×4 (08:50→20:27)
[2017-04-08] MEDS: TIOTROPIUM INHALER INH SCH (09:30)
[2017-04-08] MEDS ORDERED: FUROSEMIDE INJ 20 MG/2 ML VIAL IV ONE (13:44)
[2017-04-08] MEDS ORDERED: FUROSEMIDE INJ 20 MG/2 ML VIAL ONE (18:18)
--- NOTE | 2017-04-08 20:22 | PN ---
DATE: 04/08/17 SUPERVISING PHYSICIAN: Mitesh Dwyer M.D. SUBJECTIVE: The patient today remains weak, but it is noted that his H&H continually dropped. Based off his current lab results, he is going to get 2 units of packed red blood cells today. Anticipate discharging tomorrow. He has had no nausea or vomiting and he remains afebrile. OBJECTIVE: VITAL SIGNS: Temperature 96.3, pulse 50, blood pressure 124/72, respirations 16, satting 95% on room air. I's and O's again are not well measured as he had several voids, but his weight is 72.5 kg. CHEST: Lungs are much better today as far as aeration. There are no obvious rhonchi on either side. He is just diminished slightly towards the base on the left. HEART: Slightly irregular rate and rhythm. ABDOMEN: Soft, non-tender. Positive bowel sounds. EXTREMITIES: No clubbing, cyanosis or edema. NEUROLOGIC: He is alert and oriented times three. LABORATORY: H&H this morning was down to 7.8 and 23.8. White count evidently has gone down as well, it is down to 12.6, platelet count is 217,000. Differential shows to be without a left shift. Chemistries: Electrolytes remains within normal limits with potassium 4.0, BUN is up to 53, creatinine 1.45, glucose 89, calcium 8.6, magnesium is normalized after magnesium replacement, it is at 1.9. MICROBIOLOGY: Sputum culture showed normal muna at 48 hours. Urine culture showed mixed muna. Blood cultures remain negative after 4 days. ASSESSMENT: 1. Sepsis due to left lower lobe pneumonia acquired but the patient showing good clinical response after being initiated on IV Levaquin which is continued through admission with white count normalizing initially, however it showed an increase once again which was felt to be secondary to IV corticosteroids and is again showing to be returning to more baseline status. 2. Febrile illness with leukocytosis secondary to #1 showing improvement after IV fluids and antibiotics. 3. Significant history of multidrug urinary tract infections with a history of hematuria that is followed by Dr. Flowers with current culture results on this admission showing only mixed muna. 4. Altered mental status on admission secondary to #1 and #2, resolved. 5. Mild renal insufficiency likely secondary to previous large dose of Levaquin as well as some prerenal azotemia, but showing some improvement initially with IV fluids. 6. History of atrial fibrillation with controlled ventricular rate. 7. Question of a transient ischemic attack with the patient having some notable slurred speech on admission, however this has not been evidenced within the last 72 hours and there has been no new episodes, and his coronary artery studies have shown no significant stenosis. 8. Microcytic hypochromic anemia of chronic illness with the patient currently on Epogen showing a drop in his H&H requiring a transfusion of 2 units of packed red blood cells today. 9. Hypomagnesemia, resolved, normalized after IV replacement. PLAN: The patient today will be transfused 2 units of packed red blood cells with a plan to repeat laboratory studies in the morning to check his H&H. He continues to be significantly decreased in strength but has been again fairly anemic. Hopefully his transfusion will assist him and help with some of his strength. Anticipate discharging him home in the morning if his H&H shows to be stable to continue with home health and physical therapy. Until then, will continue to monitor closely. We did stop his steroids and his white count is returning to normal baseline status and he is clinically staying stable. #[id number] [facility]
[2017-04-08] MEDS ORDERED: levoFLOXacin 250MG IV 50 ML IVPB ONE (20:36)
[2017-04-08] MEDS: SIMVASTATIN 10 MG TAB PO SCH (21:36)
[2017-04-08] MEDS: ENOXAPARIN SODIUM 40 MG/0.4 ML SYG SUBCU SCH (21:38)
[2017-04-08] MEDS: KCL 20 MEQ/NS 1,000 ML IVS PRN (22:19)
[2017-04-08] MEDS: levoFLOXacin 250MG IV 250 MG in PREMIX BAG 1 BAG IVPB SCH (23:08)
[2017-04-09] MEDS: PANTOPRAZOLE SODIUM TAB 40 MG PO SCH (05:55)
--- NOTE | 2017-04-09 06:57 | RAD ---
EXAM: Two view chest. INDICATION: Left lower lobe pneumonia. COMPARISON: Chest x-ray: 04/08/2017. FINDINGS: Cardiac silhouette: Unremarkable. Stephanie: Unremarkable. Lobar consolidation: None. Pleural effusion: None. Pneumothorax: None. Other: There is elevation of the left hemidiaphragm. Bones: Unremarkable. Other: None. IMPRESSION: 1. No acute cardiopulmonary process. Electronically signed by: Anthony Sky MD 04/09/2017 6:55 AM CDT Workstation: [id number]
[2017-04-09] MEDS: BIFIDOBACTERIUM INFANTIS 4 MG CAP PO SCH (08:26)
[2017-04-09] MEDS: PROPRANOLOL HCL 20 MG TAB PO SCH (08:26)
[2017-04-09] MEDS: TELMISARTAN HYDROCHLOROTHIAZID PO SCH (08:27)
[2017-04-09] MEDS: diltiaZEM HCL TAB 30 MG TAB PO SCH (08:27)
[2017-04-09] MEDS: guaiFENesin ER TAB 600 MG TAB PO SCH (08:27)
[2017-04-09] MEDS: ALLOPURINOL 300 MG TAB PO SCH (08:30)
[2017-04-09] MEDS: TIOTROPIUM INHALER INH SCH (10:45)
[2017-04-09 10:51] VITALS: BP 138/40; TEMP 96.2; O2SAT 95
[2017-04-09] MEDS: LEVALBUTEROL NEBS 1.25 MG/3 ML VIAL NEB SCH (13:10)
[2017-04-10] MEDS: LEVALBUTEROL NEBS 1.25 MG/3 ML VIAL NEB SCH (09:03)
--- NOTE | 2017-04-10 17:03 | DS ---
SUPERVISING PHYSICIAN: Mitesh Dwyer M.D. DISCHARGE DIAGNOSIS: 1. Sepsis due to left lower lobe pneumonia requiring the patient to be initiated on IV antibiotics to include Levaquin and IV fluids. Infection is secondary to underlying left lower lobe pneumonia, unknown organism as sputum was showing no growth. 2. Febrile illness with leukocytosis secondary to #1 improved after IV fluids and antibiotics. 3. History of multidrug urinary tract infections with a history of hematuria that is followed by Dr. Flowers with cultures on admission showing only mixed muna. 4. Altered mental status on admission secondary to metabolic encephalopathy from underlying sepsis from the left lower lobe pneumonia. 5. Mild renal insufficiency secondary to previous large dose of Levaquin as well as prerenal azotemia, improved with IV fluids and re-dosing of Levaquin. 6. History of atrial fibrillation with controlled ventricular rate. 7. Question of a transient ischemic attack with the patient having some notable slurred speech on admission, but it resolved no evidence prior to discharge with the patient having carotid artery studies that showed no significant stenosis. 8. Microcytic hypochromic anemia of chronic illness with the patient currently on Epogen injections weekly based off H&H requiring transfusion of 2 units of packed red blood cells during Acute Care admission with no complications, showing improvement. 9. Hypomagnesemia, resolved with IV placement. HISTORY OF PRESENT ILLNESS: Mr. Reyes is an 86 year-old male patient who approximately at 5:00 PM on the date of admission had an acute mental change status. His reported that he spoke very slowly and his words were not clear. He has had multiple episodes of slurred/garbled speech over the last several months as reported by patient's daughter. He had a complaint of weakness for a week or two as well as poor oral intake and anorexia. The extreme weakness had progressively worsened over the last several days. He also complained of some upper respiratory symptoms with a productive cough and nasal drainage. He had some chest congestion and stated he just has felt poorly over the last few weeks and it had progressively worsened to the point yesterday where they brought him to the Emergency Room. He does have a history of chronic anemia as well as frequent urinary tract infections with hematuria and multidrug resistant urinary tract infections. In the Emergency Room, it was difficult to get a history from him and he was given several liters of fluids. Initially he did not urinate for several hours. There was an attempt to pass a catheter which was unsuccessful, but at some point he was able to give a urine specimen. The urinalysis showed 100 urine protein, moderate amount of blood and 3 to 5 urine RBCs. The remainder of the urinalysis was negative for infection. He had 101.8 fever. His blood pressure was 184/93, oxygen saturation was 90% on 2 liters nasal cannula. Chest x-ray per radiology interpretation showed the presence of a moderate sized infiltrate , atelectasis in the lingula of the left lung and the left lower lobe of the lung. WBCs were elevated at 21,900 with an H&H of 9.0 and 28. Lactic acid was within normal limits at 1.7. Blood cultures were completed. He was started on antibiotics and admitted to the Medical/Surgical floor for continuation of treatment and further evaluation. LABORATORY: CBC initially on admission showed a white count of 21.9, hemoglobin 9, hematocrit 28.0 with a left shift noted with elevated bands. With initiation of treatment on Levaquin, initially his white count did improve and normalize to 10.8, hemoglobin remained fairly stable but the patient was placed on steroids initially and this ended in an elevation of his leukocytes, they went up to 14.6. Hemoglobin also had dropped to 7.8 and 23.8 requiring a transfusion of 2 units of packed red blood cells. He was unable to get his Procrit as prescribed previously. His white count normalized prior to discharge and was down to 10.7, hemoglobin and hematocrit after 2 units of packed red blood cells showed hemoglobin 11.1, hematocrit 33.0. Differential had resolved prior to discharge. Chemistries on admission showed a lot potassium at 3.2 with a normal sodium. BUN 38, creatinine 1.75. After initiation of fluids and further treatment and prior to discharge and transfusion of 2 units of packed red blood cells, ultimately his creatinine was 1.45 and BUN of 50 and electrolytes were within normal limits as well as liver function. Magnesium was low at 1.6, after replacement it normalized to 1.9. Urinalysis on admission showed 100 protein and moderate amount of blood, 3 to 5 RBCs, no WBCs and rare bacteria. MICROBIOLOGY: Sputum culture showed normal muna at 48 hours. Gram stain did initially show significant for many WBCs, positive cocci in pairs and moderate gram-negative rods but again nothing grew on the cultures. Urine culture final results showed insignificant colony count of mixed muna. He had 2 sets of blood cultures that remained negative after 5 days. He had a nasal swab for Influenza A and B by PCR that was negative. RADIOLOGY: Initial chest x-ray on admission per radiology interpretation of two view chest showed the presence of moderate sized infiltrate/atelectasis on the lingula, left lung and left lower lobe. He had multiple x-rays throughout his hospitalization and the last x-ray on 04/09/17, date of discharge, per radiology interpretation showed no acute cardiopulmonary process. He also had carotid artery studies done. 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 Antegrade flow was also noted for both vertebral arteries. HOSPITAL COURSE: Mr. Reyes was admitted as noted for sepsis secondary to left lower lobe pneumonia. He was initiated on antibiotics. He had his lactic acid drawn, was given fluids per protocol. He showed good clinical improvement with Levaquin. He did ultimately show a drop in his H&H secondary to chronic illness requiring transfusion of 2 units of packed red blood cells and tolerated those well. It was felt that the man had progressed clinically and was stable enough to discharge as he was ambulating with a walker at near baseline physical status and it was recommended that he could continue with physical therapy at home once discharged. PLAN: Mr. Reyes was discharged on 04/09/17 with instructions to followup with Dr. Moya as scheduled in 7 days. He was to resume his usual diet. He is to increase his activities as tolerated and ambulate only with a walker as per Physical Therapy. He was to resume his home medications as instructed and taken new prescriptions as directed. He is to return to the hospital should any change in condition or any concerning symptoms. DISCHARGE MEDICATIONS: 1. Xopenex inhaler every 4 hours as needed. 2. Align 4 mg, #30. 3. Guaifenesin 600 mg twice daily. 4. Levaquin 250 mg twice daily, #5. Diagnosis at discharge was stable and improved. #[id number] [facility]
== END 2017-04-09 13:30 | disposition home health service (06) | DRG 871 ==
LOC: ER 18:20 → MS 23:25 → OBSVTOIN 23:25
PROVIDERS: ADMIT Nurse Practitioner Acute Care; ATTEND Nurse Practitioner Acute Care
PROC: 30233N1 Transfusion of Nonautologous Red Blood Cells into Peripheral Vein, Percutaneous Approach (ICD-10-PCS; principal; 2017-04-08)
DX: A41.9 Sepsis, unspecified organism (principal); J18.9 Pneumonia, unspecified organism; G93.41 Metabolic encephalopathy; G45.9 Transient cerebral ischemic attack, unspecified; N28.9 Disorder of kidney and ureter, unspecified; T37.8X5A Adverse effect of other specified systemic anti-infectives and antiparasitics, initial encounter; R47.81 Slurred speech; I48.91 Unspecified atrial fibrillation; R31.9 Hematuria, unspecified; D50.9 Iron deficiency anemia, unspecified; K21.9 Gastro-esophageal reflux disease without esophagitis; E83.42 Hypomagnesemia; I10 Essential (primary) hypertension; M10.9 Gout, unspecified; G25.0 Essential tremor; Z95.1 Presence of aortocoronary bypass graft; Y92.230 Patient room in hospital as the place of occurrence of the external cause; Z87.440 Personal history of urinary (tract) infections; Z88.0 Allergy status to penicillin; Z88.5 Allergy status to narcotic agent; Z87.891 Personal history of nicotine dependence; Z88.4 Allergy status to anesthetic agent; Z79.82 Long term (current) use of aspirin; Z79.899 Other long term (current) drug therapy

== ENCOUNTER → 2017-04-15 | Outpatient (CLI) | payer MEDICARE | END | disposition home or self-care (01) | LOC: GMAL 14:55 | PROVIDERS: ATTEND Family Medicine | DX: Z12.5 Encounter for screening for malignant neoplasm of prostate (principal) ==

== ENCOUNTER → 2017-04-22 | Outpatient (CLI) | payer MEDICARE | END | disposition home or self-care (01) | LOC: BFHH 10:12 | PROVIDERS: ATTEND Family Medicine | DX: D64.9 Anemia, unspecified (principal) ==

== ENCOUNTER → 2017-04-29 | Outpatient (CLI) | payer MEDICARE | END | disposition home or self-care (01) | LOC: BFHH 09:32 | PROVIDERS: ATTEND Family Medicine | DX: D63.8 Anemia in other chronic diseases classified elsewhere (principal) ==

== ENCOUNTER → 2017-04-30 | Outpatient (CLI) | payer MEDICARE | END | disposition home or self-care (01) | LOC: GMAL 11:35 | PROVIDERS: ATTEND Family Medicine | DX: R53.82 Chronic fatigue, unspecified (principal) ==

== ENCOUNTER → 2017-05-06 | Outpatient (CLI) | payer MEDICARE | END | disposition home or self-care (01) | LOC: BFHH 09:03 | PROVIDERS: ATTEND Family Medicine | DX: D63.8 Anemia in other chronic diseases classified elsewhere (principal) ==

== ENCOUNTER → 2017-05-13 | Outpatient (CLI) | payer MEDICARE | END | disposition home or self-care (01) | LOC: BFHH 09:26 | PROVIDERS: ATTEND Family Medicine | DX: D50.9 Iron deficiency anemia, unspecified (principal) ==

== ENCOUNTER → 2017-05-20 | Outpatient (CLI) | payer MEDICARE | END | disposition home or self-care (01) | LOC: BFHH 10:03 | PROVIDERS: ATTEND Family Medicine | DX: D64.9 Anemia, unspecified (principal) ==

== ENCOUNTER → 2017-05-27 | Outpatient (CLI) | payer MEDICARE | END | disposition home or self-care (01) | LOC: BFHH 08:20 | PROVIDERS: ATTEND Family Medicine | DX: D64.9 Anemia, unspecified (principal) ==

== ENCOUNTER → 2017-06-03 | Outpatient (CLI) | payer MEDICARE | END | disposition home or self-care (01) | LOC: BFHH 08:30 | PROVIDERS: ATTEND Family Medicine | DX: D50.9 Iron deficiency anemia, unspecified (principal) ==

== ENCOUNTER → 2017-06-10 | Outpatient (CLI) | payer MEDICARE | END | disposition home or self-care (01) | LOC: BFHH 14:17 | PROVIDERS: ATTEND Family Medicine | DX: D64.9 Anemia, unspecified (principal) ==

== ENCOUNTER → 2017-06-17 | Outpatient (CLI) | payer MEDICARE | END | disposition home or self-care (01) | LOC: GMAL 12:08 | PROVIDERS: ATTEND Family Medicine | DX: Z79.899 Other long term (current) drug therapy (principal) ==

== ENCOUNTER 2017-07-13 20:15 | Emergency (ER) | payer MEDICARE ==
[2017-07-13] MEDS ORDERED: GLUCAGON INJ 1 MG VIAL IV ONE ×2 (20:23→21:47)
[2017-07-13] MEDS ORDERED: LIDOCAINE HCL 2% (MOUTH-THROAT) 15 ML UD MT ONE (21:23)
--- NOTE | 2017-07-13 21:43 | RAD ---
EXAM DESCRIPTION: Chest,2 Views CLINICAL HISTORY: 86 years, Male, lower esoph blockage COMPARISON: Chest x-ray dated 04/09/2017 FINDINGS: PA and lateral chest radiographs were performed. The left hemidiaphragm remains elevated with atelectasis in the left lower lobe. Large collection of gas lies slightly above the left hemidiaphragm on the frontal radiograph. Aortic arch is calcified. The lungs are moderately well expanded and otherwise clear. The costophrenic sulci are sharp. The cardiac silhouette, hilar regions, trachea, soft tissues and bony structures are unremarkable. The interval since the prior study, aeration in the left lower lobe has improved. IMPRESSION: Gaseous distention of the distal esophagus versus hiatal hernia. Elevated left hemidiaphragm with left lower lobe atelectasis. Electronically signed by: Ashley Michael MD 07/13/2017 9:42 PM [facility]
--- NOTE | 2017-07-13 22:41 | ED.PDOC ---
History of Present Illness - General Chief Complaint: General Stated Complaint: N/V Time Seen by Provider: 07/13/17 20:19 Source: patient Exam Limitations: no limitations - History of Present Illness Initial Comments: The patient is a 86-year-old male presenting to the emergency room secondary to one to 2 hours of coughing/vomiting up a bunch of phlegm. The patient was eating supper when also he couldn't swallow anything anymore and he started coughing up the copious phlegm. he is unable to keep anything down. He thinks he puts down immediately comes back up including liquids. He is not really having chest pain. He does cough some to keep his airway clear the phlegm. His oxygen saturations remained between 90 and 95%or less secretions are making him cough. The patient is alert and pleasant. He is not in pain. He has not had this problem before. No history of any esophageal pathology in the past. He does take an aspirin but no other significant blood thinners. Timing/Duration: 1-3 hours Severity: moderate Improving Factors: nothing Worsening Factors: eating Associated Symptoms: denies symptoms Allergies/Adverse Reactions: Allergies Codeine Allergy (Verified 07/13/17 20:32) Morphine Allergy (Verified 03/30/16 12:07) Penicillin G Allergy (Verified 03/30/16 12:07) Procaine [From Novocain] Allergy (Verified 03/30/16 12:07) Home Medications: Ambulatory Orders Allopurinol 300 mg PO DAILY 04/04/17 Aspirin [Aspirin EC Low Dose] 81 mg PO DAILY 04/04/17 Diltiazem HCl 30 mg PO BID 04/04/17 Ferrous Sulfate 325 mg PO DAILY 04/04/17 Omeprazole Magnesium [Prilosec Otc] 40 mg PO DAILY 04/04/17 Procrit 40,000 unt SUBCU WKLY 04/04/17 Propranolol HCl 40 mg PO BID 04/04/17 Simvastatin 5 mg PO BEDTIME 04/04/17 Telmisartan-Hydrochlorothiazid [Micardis Hct 40-12.5 mg] 1 tab PO DAILY Tiotropium [place] Monohydrate [Spiriva Handihaler] 18 mcg IN DAILY 04/04/17 Bifidobacterium Infantis [Align] 4 mg PO DAILY #30 04/09/17 Levalbuterol Tartrate [Xopenex Hfa] 45 mcg IN Q4HR PRN #1 inh 04/09/17 Levofloxacin [Levaquin] 250 mg PO DAILY #5 tab 04/09/17 guaiFENesin ER TAB [Mucinex Tab] 600 mg PO BID #14 04/09/17 Review of Systems - Review of Systems Constitutional: States: no symptoms reported EENTM: States: no symptoms reported Respiratory: States: no symptoms reported Cardiology: States: no symptoms reported Gastrointestinal/Abdominal: States: vomiting - of mucus only. No food particles. Musculoskeletal: States: no symptoms reported Skin: States: no symptoms reported Neurological: States: no symptoms reported Past Medical History (General) - Patient Medical History Hx Seizures: No Hx Stroke: No Hx Dementia: No Hx Asthma: No Hx of COPD: No Hx Cardiac Disorders: No Hx Congestive Heart Failure: No Hx Pacemaker: No Hx Hypertension: Yes Hx Thyroid Disease: No Hx Diabetes: No Hx Gastroesophageal Reflux: No Hx Renal Disease: No Hx Cancer: No Hx of HIV: No Hx Hepatitis C: No Hx MRSA: No MRSA Source:: Wound - Vaccination History Hx Tetanus, Diphtheria Vaccination: Yes Hx Influenza Vaccination: Yes Hx Pneumococcal Vaccination: No - Social History Hx Tobacco Use: No Hx Chewing Tobacco Use: No Hx Alcohol Use: No Hx Substance Use: No Hx Substance Use Treatment: No Hx Depression: No Hx Physical Abuse: No Hx Emotional Abuse: No Hx Suspected Abuse: No - Triage Comment ED Triage Comment: Presents to ER via [facility] ---c/o N/V after steak at local cafe and thinks a piece of meat may be caught in esophagus. Family Medical History - Family History Father Family History: Unknown Living Status: Physical Exam - Physical Exam General Appearance: Alert, Anxious Eye Exam: bilateral normal Ears, Nose, Throat: normal ENT inspection, other - hearing is mildly decreased bilaterally but that is chronic Neck: full range of motion, supple Respiratory: lungs clear, normal breath sounds, no respiratory distress, no accessory muscle use Cardiovascular/Chest: normal peripheral pulses, no edema, other - egular rate Peripheral Pulses: radial,right: 2+, radial,left: 2+, dorsalis pedis,right: 2+, dorsalis pedis,left: 2+ Gastrointestinal/Abdominal: non tender, soft Rectal Exam: deferred Back Exam: normal inspection, no CVA tenderness Extremity: non-tender, no pedal edema, normal capillary refill 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, alert, normal mood/affect, oriented x 3 Skin Exam: normal color Comments: Vital Signs - 24 hr 07/13/17 07/13/17 07/13/17 21:02 21:21 21:43 Temperature 98.4 F 98.5 F 98.4 F Pulse Rate [ 90 95 H 89 monitor] Respiratory 20 20 20 Rate Blood Pressure 169/118 176/98 180/96 [Rt arm] O2 Sat by Pulse 95 92 L 95 Oximetry 07/13/17 21:57 Temperature Pulse Rate [ 79 monitor] Respiratory 20 Rate Blood Pressure 159/96 [Rt arm] O2 Sat by Pulse 90 L Oximetry Progress - Progress Progress: 07/13/17 22:41 the patient is a 86-year-old male presenting with what appears to be a food bolus impaction in the distal esophagus. He presented within an hour or 2 of the start of symptoms. Chest x-ray is consistent with that diagnosis. The patient has failed 2 rounds of IV glucagon as well as viscous lidocaine and seltzer water as well as percussion. The patient is going to be transferred for further management of this problem. Vital signs have remained stable. Departure - Departure Clinical Impression: Food impaction of esophagus Qualifiers: Encounter type: initial encounter Qualified Code(s): T18.128A - Food in esophagus causing other injury, initial encounter Disposition: Transfer to Hospital Referrals: Ari Moya III, MD [Primary Care Provider] - 1-2 Weeks Home Medications: Ambulatory Orders Allopurinol 300 mg PO DAILY 04/04/17 Aspirin [Aspirin EC Low Dose] 81 mg PO DAILY 04/04/17 Diltiazem HCl 30 mg PO BID 04/04/17 Ferrous Sulfate 325 mg PO DAILY 04/04/17 Omeprazole Magnesium [Prilosec Otc] 40 mg PO DAILY 04/04/17 Procrit 40,000 unt SUBCU WKLY 04/04/17 Propranolol HCl 40 mg PO BID 04/04/17 Simvastatin 5 mg PO BEDTIME 04/04/17 Telmisartan-Hydrochlorothiazid [Micardis Hct 40-12.5 mg] 1 tab PO DAILY Tiotropium [place] Monohydrate [Spiriva Handihaler] 18 mcg IN DAILY 04/04/17 Bifidobacterium Infantis [Align] 4 mg PO DAILY #30 04/09/17 Levalbuterol Tartrate [Xopenex Hfa] 45 mcg IN Q4HR PRN #1 inh 04/09/17 Levofloxacin [Levaquin] 250 mg PO DAILY #5 tab 04/09/17 guaiFENesin ER TAB [Mucinex Tab] 600 mg PO BID #14 04/09/17 Transfer to Outside Facility - Transfer Information Accepting Provider:: dr osorio Accepting Facility: [facility] Reason for Transfer: required specialist not available
[2017-07-14 01:39] VITALS: BP 159/66; TEMP 98.5; O2SAT 94
== END 2017-07-13 23:30 | disposition short-term general hospital (02) ==
LOC: ER 20:15
DX: T18.128A Food in esophagus causing other injury, initial encounter (principal); I10 Essential (primary) hypertension; Z88.0 Allergy status to penicillin; Z88.5 Allergy status to narcotic agent; Z88.8 Allergy status to other drugs, medicaments and biological substances; Z79.82 Long term (current) use of aspirin
CPT/HCPCS: 71020; J1610

== ENCOUNTER → 2017-08-05 | Outpatient (CLI) | payer MEDICARE | END | disposition home or self-care (01) | LOC: GMAL 16:40 | PROVIDERS: ATTEND Family Medicine | DX: N18.9 Chronic kidney disease, unspecified (principal); D63.1 Anemia in chronic kidney disease ==

== ENCOUNTER → 2017-08-15 | Outpatient (CLI) | payer MEDICARE | LOC: GMAL 14:38 | PROVIDERS: ATTEND Family Medicine | DX: D51.3 Other dietary vitamin B12 deficiency anemia (principal); D63.1 Anemia in chronic kidney disease ==

== ENCOUNTER → 2017-09-23 | Outpatient (CLI) | payer MEDICARE | LOC: GMAL 14:39 | PROVIDERS: ATTEND Family Medicine | DX: D63.1 Anemia in chronic kidney disease (principal) ==

== ENCOUNTER 2017-10-09 05:44 | Day surgery (SDC) | payer MEDICARE ==
[2017-10-09] MEDS ORDERED: LACTATED RINGERS 1,000 ML ONE (08:01)
--- NOTE | 2017-10-09 09:16 | OP ---
DATE OF PROCEDURE: 10/09/17 PREPROCEDURE DIAGNOSIS: 1. Severe esophagitis. 2. Weight loss. POSTPROCEDURE DIAGNOSIS: 1. Large hiatal hernia. 2. Resolved esophagitis. 3. No evidence of mass or lesion. PROCEDURE: 1. Esophagogastroduodenoscopy. SURGEON: Eleazar Garcia MD COMPLICATIONS: No immediate complications. SEDATION: The patient was sedated via IV propofol by the Anesthesia Department. CONSENT: Prior to the procedure, risks, benefits and alternatives to the therapy were discussed with the patient. The risks included bleeding, infection , perforation and . The patient agreed to the procedure and signed a consent. PREPROCEDURE ANESTHESIA ASSESSMENT: An examination revealed no contraindication to sedation. Airway examination demonstrated a Mallampati class type 2, ASA grade assessment type 2. Throughout the procedure, the patient's blood pressure, pulse and oxygen saturation were monitored continuously. PROCEDURE: The patient was placed in the left lateral decubitus position. Bite block was placed in the mouth between the teeth. The Olympus endoscope was introduced through the oropharynx, esophagus, stomach and the second portion of the duodenum. The scope was retracted and the mucosa visualized. The entirety of the exam was performed under direct visualization. Retroflexion was performed in the stomach. The patient tolerated the procedure well. FINDINGS: 1. Large hiatal hernia was seen in the distal esophagus. The diaphragmatic pinch was seen at 45 cm from the incisors and the gastric folds were seen at 38 cm from the incisors. No evidence of nodularity or esophagitis was seen in the distal esophagitis. The previously seen severe esophagitis had much improved and healed. Biopsies were taken with cold biopsy forceps. 2. Tortuous esophagus. 3. The stomach was unremarkable. The duodenum was normal. RECOMMENDATIONS: 1. Return the patient home. 2. Resume previous diet. 3. Gastroesophageal reflux disease lifestyle recommendations including lifting the head of the bed at nighttime, spacing dinnertime from laying supine, small portion meals, especially at nighttime, especially in light of large hiatal hernia. 4. Continue omeprazole 40 mg daily. 5. Resume other medications. 6. Return to my clinic p.r.n. #[id number] [facility]
[2017-10-09 09:30] VITALS: BP 131/70; TEMP 97.2; O2SAT 95
[2017-10-09] MEDS ORDERED: PROPOFOL 200 MG/20 ML VIAL IV ONE (10:00)
== END 2017-10-09 09:24 | disposition home or self-care (01) ==
LOC: AMB 05:44
PROVIDERS: ATTEND Internal Medicine Gastroenterology
DX: K44.9 Diaphragmatic hernia without obstruction or gangrene (principal); K21.9 Gastro-esophageal reflux disease without esophagitis; R63.4 Abnormal weight loss; D51.8 Other vitamin B12 deficiency anemias; E78.00 Pure hypercholesterolemia, unspecified; Z87.891 Personal history of nicotine dependence; Z88.5 Allergy status to narcotic agent; Z88.0 Allergy status to penicillin; Z79.899 Other long term (current) drug therapy
CPT/HCPCS: 00731; 43239; 88305; J3490; J7120

== ENCOUNTER → 2017-11-11 | Outpatient (CLI) | payer MEDICARE | LOC: GMAL 11:54 | PROVIDERS: ATTEND Family Medicine | DX: D51.3 Other dietary vitamin B12 deficiency anemia (principal); D63.1 Anemia in chronic kidney disease; N18.9 Chronic kidney disease, unspecified; R53.82 Chronic fatigue, unspecified; I10 Essential (primary) hypertension; E55.9 Vitamin D deficiency, unspecified; Z79.899 Other long term (current) drug therapy ==

== ENCOUNTER → 2017-11-18 | Outpatient (CLI) | payer MEDICARE | LOC: BFHH 10:23 | PROVIDERS: ATTEND Family Medicine | DX: I10 Essential (primary) hypertension (principal); D63.8 Anemia in other chronic diseases classified elsewhere ==

== ENCOUNTER → 2017-11-25 | Outpatient (CLI) | payer MEDICARE | LOC: BFHH 10:12 | PROVIDERS: ATTEND Family Medicine | DX: D63.8 Anemia in other chronic diseases classified elsewhere (principal); I48.91 Unspecified atrial fibrillation ==

== ENCOUNTER → 2017-12-02 | Outpatient (CLI) | payer MEDICARE | LOC: BFHH 09:15 | PROVIDERS: ATTEND Family Medicine | DX: I12.9 Hypertensive chronic kidney disease with stage 1 through stage 4 chronic kidney disease, or unspecified chronic kidney disease (principal); N18.9 Chronic kidney disease, unspecified; I48.91 Unspecified atrial fibrillation; E03.9 Hypothyroidism, unspecified; D63.8 Anemia in other chronic diseases classified elsewhere; D51.0 Vitamin B12 deficiency anemia due to intrinsic factor deficiency; E55.9 Vitamin D deficiency, unspecified ==

== ENCOUNTER → 2017-12-09 | Outpatient (CLI) | payer MEDICARE | LOC: BFHH 09:43 | PROVIDERS: ATTEND Family Medicine | DX: I12.9 Hypertensive chronic kidney disease with stage 1 through stage 4 chronic kidney disease, or unspecified chronic kidney disease (principal); N18.9 Chronic kidney disease, unspecified ==

== ENCOUNTER → 2017-12-17 | Outpatient (CLI) | payer MEDICARE | LOC: BFHH 14:33 | PROVIDERS: ATTEND Family Medicine | DX: D63.8 Anemia in other chronic diseases classified elsewhere (principal) ==

== ENCOUNTER → 2017-12-23 | Outpatient (CLI) | payer MEDICARE | LOC: BFHH 09:56 | PROVIDERS: ATTEND Family Medicine | DX: I12.9 Hypertensive chronic kidney disease with stage 1 through stage 4 chronic kidney disease, or unspecified chronic kidney disease (principal); D63.8 Anemia in other chronic diseases classified elsewhere ==

== ENCOUNTER → 2017-12-30 | Outpatient (CLI) | payer MEDICARE | LOC: GMAL 10:47 | PROVIDERS: ATTEND Family Medicine | DX: D63.8 Anemia in other chronic diseases classified elsewhere (principal); I12.9 Hypertensive chronic kidney disease with stage 1 through stage 4 chronic kidney disease, or unspecified chronic kidney disease ==

== ENCOUNTER → 2018-01-06 | Outpatient (CLI) | payer MEDICARE | LOC: BFHH 11:10 | PROVIDERS: ATTEND Family Medicine | DX: D63.8 Anemia in other chronic diseases classified elsewhere (principal) ==

== ENCOUNTER → 2018-01-13 | Outpatient (CLI) | payer MEDICARE | LOC: BFHH 12:00 | PROVIDERS: ATTEND Family Medicine | DX: D63.8 Anemia in other chronic diseases classified elsewhere (principal) ==

== ENCOUNTER → 2018-01-20 | Outpatient (CLI) | payer MEDICARE | LOC: BFHH 10:29 | PROVIDERS: ATTEND Family Medicine | DX: D63.8 Anemia in other chronic diseases classified elsewhere (principal) ==

== ENCOUNTER → 2018-01-27 | Outpatient (CLI) | payer MEDICARE | LOC: GMAL 10:08 | PROVIDERS: ATTEND Family Medicine | DX: N18.9 Chronic kidney disease, unspecified (principal); I12.9 Hypertensive chronic kidney disease with stage 1 through stage 4 chronic kidney disease, or unspecified chronic kidney disease; D63.8 Anemia in other chronic diseases classified elsewhere ==

== ENCOUNTER → 2018-02-03 | Outpatient (CLI) | payer MEDICARE | LOC: BFHH 10:42 | PROVIDERS: ATTEND Family Medicine | DX: N18.9 Chronic kidney disease, unspecified (principal); I12.9 Hypertensive chronic kidney disease with stage 1 through stage 4 chronic kidney disease, or unspecified chronic kidney disease; D63.8 Anemia in other chronic diseases classified elsewhere ==

== ENCOUNTER → 2018-02-10 | Outpatient (CLI) | payer MEDICARE | LOC: BFHH 10:18 | PROVIDERS: ATTEND Family Medicine | DX: D63.8 Anemia in other chronic diseases classified elsewhere (principal) ==

== ENCOUNTER 2018-02-13 15:20 | Emergency (ER) | payer MEDICARE ==
--- NOTE | 2018-02-13 15:43 | ED.PDOC ---
History of Present Illness - General Chief Complaint: General Stated Complaint: pain right lower rib cage/cough Time Seen by Provider: 02/13/18 15:22 Source: patient Exam Limitations: no limitations - History of Present Illness Initial Comments: Sai Reyes 87 y/o male stated that he had been having right lower rib cage pain,dry cough uses breathing treatment for the last one week .No SOB ,denies chest pains,was seen by primary MD at he clinic EKG was done and noted it was concerning and was sent over here repeat EKG done here in ER showed NSR HR-[address] elevation.No fever,no chills,no exertional chest pains. Timing/Duration: other - see hpi Severity: moderate Improving Factors: nothing Worsening Factors: nothing Associated Symptoms: other - see hpi Allergies/Adverse Reactions: Allergies Codeine Allergy (Verified 07/13/17 20:32) Morphine Allergy (Verified 03/30/16 12:07) Penicillin G Allergy (Verified 03/30/16 12:07) Procaine [From Novocain] Allergy (Verified 03/30/16 12:07) Home Medications: Ambulatory Orders Allopurinol 300 mg PO DAILY 04/04/17 Diltiazem HCl 30 mg PO BID 04/04/17 Ferrous Sulfate 325 mg PO DAILY 04/04/17 Omeprazole Magnesium [Prilosec Otc] 20 mg PO BID 04/04/17 Propranolol HCl 40 mg PO BID 04/04/17 Simvastatin 5 mg PO BEDTIME 04/04/17 Levalbuterol Tartrate [Xopenex Hfa] 45 mcg IN Q4HR PRN #1 inh 04/09/17 Cephalexin 500 mg PO BEDTIME 10/08/17 Beclomethasone Dipropionate Hf [Qvar Redihaler] 80 mcg IN BID #1 aer 02/13/18 Review of Systems - Review of Systems Constitutional: States: no symptoms reported EENTM: States: no symptoms reported Respiratory: States: see HPI Cardiology: States: no symptoms reported Gastrointestinal/Abdominal: States: no symptoms reported Genitourinary: States: no symptoms reported Musculoskeletal: States: no symptoms reported Skin: States: no symptoms reported Neurological: States: no symptoms reported Hematologic/Lymphatic: States: anemia - chronic myelodysplasia ? Past Medical History (General) - Patient Medical History Hx Seizures: No Hx Stroke: No Hx Dementia: No Hx Asthma: No Hx of COPD: No Hx Cardiac Disorders: No Hx Congestive Heart Failure: No Hx Pacemaker: No Hx Hypertension: Yes Hx Thyroid Disease: No Hx Diabetes: No Hx Gastroesophageal Reflux: No Hx Renal Disease: No Hx Cancer: Yes - prostate cancer S/P seeding Hx of HIV: No Hx Hepatitis C: No Hx MRSA: No MRSA Source:: Wound Surgical History: appendectomy, coronary bypass surgery, tonsillectomy, other - hernia repair - Vaccination History Hx Tetanus, Diphtheria Vaccination: Yes Hx Influenza Vaccination: Yes Hx Pneumococcal Vaccination: No - Social History Hx Tobacco Use: No Hx Chewing Tobacco Use: No Hx Alcohol Use: No Hx Substance Use: No Hx Substance Use Treatment: No Hx Depression: No Hx Physical Abuse: No Hx Emotional Abuse: No Hx Suspected Abuse: No Family Medical History - Family History Father Family History: No Known Living Status: Physical Exam - Physical Exam General Appearance: Alert, Comfortable, No apparent distress Eye Exam: bilateral normal Ears, Nose, Throat: hearing grossly normal, normal ENT inspection, normal pharynx Neck: non-tender, full range of motion, supple Respiratory: chest non-tender, no respiratory distress, decreased breath sounds - bases Cardiovascular/Chest: normal peripheral pulses, regular rate, rhythm, no gallop , no JVD, systolic murmur - G2/5 Peripheral Pulses: radial,right: 2+, radial,left: 2+ Gastrointestinal/Abdominal: normal bowel sounds, non tender, soft Back Exam: no CVA tenderness, no vertebral tenderness Extremity: non-tender, no pedal edema, no calf tenderness Neurologic: alert, oriented x 3 Skin Exam: normal color, warm/dry Lymphatic: no adenopathy Progress - Progress Progress: 02/13/18 17:49 Vital Signs - 8 hr 02/13/18 17:45 Pulse Rate 52 L Respiratory 16 Rate O2 Sat by Pulse 98 Oximetry - Results/Orders Results/Orders: 02/13/18 15:44 URINALYSIS Stat 02/13/18 15:45 EKG STAT 02/13/18 17:12 SVN/Updraft Therapy .ONCE 02/14/18 09:00 Updrafts Daily Laboratory Results - last 24 hr 02/13/18 16:19 WBC 5.7 RBC 2.62 L Hgb 9.6 L Hct 29.3 L MCV 111.8 H MCH 36.6 H MCHC 32.8 L RDW 15.9 H Plt Count 210 MPV 7.8 Absolute Neuts (auto) 1.80 Absolute Lymphs (auto) 1.10 Absolute Monos (auto) 2.80 H Absolute Eos (auto) 0.00 Absolute Basos (auto) 0.00 Neutrophils % 31.0 L Lymphocytes % 18.9 L Monocytes % 48.9 H Eosinophils % 0.8 L Basophils % 0.4 PT 10.9 H INR 1.09 PTT (SP) 27.6 Sodium 138 Potassium 4.2 Chloride 101 Carbon Dioxide 29 Anion Gap 12.2 BUN 23 H Creatinine 1.46 H BUN/Creatinine Ratio 15.8 Random Glucose 91 Serum Osmolality 278.9 Calcium 9.1 Magnesium 1.8 Total Bilirubin 0.5 Direct Bilirubin 0.2 Indirect Bilirubin 0.3 AST 18 ALT 10 Alkaline Phosphatase 68 Creatine Kinase 34 L CK-MB (CK-2) 1.3 CK-MB (CK-2) % Not Reportable Troponin I < 0.02 B-Natriuretic Peptide 417.0 H* Serum Total Protein 8.1 Albumin 3.4 - EKG/XRAY/CT EKG: Sinus - HR-60, no ST T wave changes XRAY: chest - subsegmental atelectasis Departure - Departure Clinical Impression: Bronchitis with chronic airway obstruction, Anemia, chronic disease, Renal insufficiency Time of Disposition: 17:42 Disposition: Discharge to Home or Self Care Condition: Fair Departure Forms: ED Discharge - Pt. Copy, Patient Portal Self Enrollment Instructions: Chronic Bronchitis (DC), Chronic Bronchitis Referrals: Ari Moya III, MD [Primary Care Provider] - 1-2 Weeks Prescriptions: Beclomethasone Dipropionate Hf [Qvar Redihaler] 80 mcg IN BID #1 aer Home Medications: Ambulatory Orders Allopurinol 300 mg PO DAILY 04/04/17 Diltiazem HCl 30 mg PO BID 04/04/17 Ferrous Sulfate 325 mg PO DAILY 04/04/17 Omeprazole Magnesium [Prilosec Otc] 20 mg PO BID 04/04/17 Propranolol HCl 40 mg PO BID 04/04/17 Simvastatin 5 mg PO BEDTIME 04/04/17 Levalbuterol Tartrate [Xopenex Hfa] 45 mcg IN Q4HR PRN #1 inh 04/09/17 Cephalexin 500 mg PO BEDTIME 10/08/17 Beclomethasone Dipropionate Hf [Qvar Redihaler] 80 mcg IN BID #1 aer 02/13/18 Additional Instructions: Return to er as needed,follow up with primary Md 17 February 2018;Continue with all home medications
--- NOTE | 2018-02-13 16:21 | RAD ---
EXAM DESCRIPTION: Chest,1 View CLINICAL HISTORY: sob COMPARISON: July 13, 2017 FINDINGS: Again seen are postoperative changes in the mediastinum. There are mural calcifications in the aortic arch. The cardiomediastinal silhouette is otherwise unremarkable. Chronic elevation of the left hemidiaphragm, stable. Mild subsegmental atelectasis or scarring in the left lung base is also stable. No airspace consolidation or pleural effusion is identified. There is no pneumothorax or acute fracture. IMPRESSION: Subsegmental atelectasis or scarring in the left lung base, not significantly changed from June,. No acute intrathoracic abnormality. If symptoms persist or worsen, follow-up PA and lateral chest for chest CT should be considered. Postoperative changes in the mediastinum, stable chronic elevation of the left hemidiaphragm and other nonacute findings as detailed above. Electronically signed by: Gary Laureano MD 02/13/2018 4:20 PM CDT
[2018-02-13] MEDS ORDERED: IPRATROPIUM/ALBUTEROL 3 ML VIAL NEB ONE (17:12)
[2018-02-13 17:58] VITALS: BP 160/78; TEMP 96.7; O2SAT 94
== END 2018-02-13 17:57 | disposition home or self-care (01) ==
LOC: ER 15:20
DX: J40 Bronchitis, not specified as acute or chronic (principal); J45.909 Unspecified asthma, uncomplicated; I10 Essential (primary) hypertension; C61 Malignant neoplasm of prostate; C93.10 Chronic myelomonocytic leukemia not having achieved remission; D63.8 Anemia in other chronic diseases classified elsewhere; N28.9 Disorder of kidney and ureter, unspecified; Z79.899 Other long term (current) drug therapy; Z95.1 Presence of aortocoronary bypass graft
CPT/HCPCS: 36415; 71045; 80048; 80076; 82550; 82553; 83880; 84484; 85025; 85610; 85730; 93005; 94640; J7620

== ENCOUNTER → 2018-02-17 | Outpatient (CLI) | payer MEDICARE | LOC: BFHH 15:49 | PROVIDERS: ATTEND Family Medicine | DX: D63.8 Anemia in other chronic diseases classified elsewhere (principal); N18.9 Chronic kidney disease, unspecified ==

== ENCOUNTER → 2018-02-24 | Outpatient (CLI) | payer MEDICARE | LOC: BFHH 15:07 | PROVIDERS: ATTEND Family Medicine | DX: D63.8 Anemia in other chronic diseases classified elsewhere (principal) ==

== ENCOUNTER → 2018-03-17 | Outpatient (CLI) | payer MEDICARE | LOC: BFHH 10:27 | PROVIDERS: ATTEND Family Medicine | DX: D63.8 Anemia in other chronic diseases classified elsewhere (principal) ==

== ENCOUNTER → 2018-03-24 | Outpatient (CLI) | payer MEDICARE | LOC: BFHH 10:30 | PROVIDERS: ATTEND Family Medicine | DX: R35.0 Frequency of micturition (principal) ==

== ENCOUNTER → 2018-03-27 | Outpatient (CLI) | payer MEDICARE | LOC: BFHH 13:14 | PROVIDERS: ATTEND Family Medicine | DX: B96.20 Unspecified Escherichia coli [E. coli] as the cause of diseases classified elsewhere (principal); D63.8 Anemia in other chronic diseases classified elsewhere; I12.9 Hypertensive chronic kidney disease with stage 1 through stage 4 chronic kidney disease, or unspecified chronic kidney disease; N18.9 Chronic kidney disease, unspecified; J44.9 Chronic obstructive pulmonary disease, unspecified; I48.91 Unspecified atrial fibrillation; I25.10 Atherosclerotic heart disease of native coronary artery without angina pectoris; M10.9 Gout, unspecified; Z95.5 Presence of coronary angioplasty implant and graft ==

== ENCOUNTER → 2018-03-31 | Outpatient (CLI) | payer MEDICARE | LOC: BFHH 10:49 | PROVIDERS: ATTEND Family Medicine | DX: D63.8 Anemia in other chronic diseases classified elsewhere (principal) ==

== ENCOUNTER → 2018-04-07 | Outpatient (CLI) | payer MEDICARE | LOC: BFHH 11:56 | PROVIDERS: ATTEND Family Medicine | DX: R30.0 Dysuria (principal); D63.8 Anemia in other chronic diseases classified elsewhere; Z51.81 Encounter for therapeutic drug level monitoring ==

== ENCOUNTER → 2018-04-11 | Outpatient (CLI) | payer MEDICARE | LOC: BFHH 15:53 | PROVIDERS: ATTEND Family Medicine | DX: R35.0 Frequency of micturition (principal) ==

== ENCOUNTER → 2018-04-14 | Outpatient (CLI) | payer MEDICARE | LOC: BFHH 10:20 | PROVIDERS: ATTEND Family Medicine | DX: D63.8 Anemia in other chronic diseases classified elsewhere (principal) ==

== ENCOUNTER → 2018-04-21 | Outpatient (CLI) | payer MEDICARE | LOC: BFHH 10:11 | PROVIDERS: ATTEND Family Medicine | DX: D63.8 Anemia in other chronic diseases classified elsewhere (principal) ==

== ENCOUNTER → 2018-04-22 | Outpatient (CLI) | payer MEDICARE | LOC: BFHH 16:05 | PROVIDERS: ATTEND Family Medicine | DX: R30.0 Dysuria (principal) ==

== ENCOUNTER → 2018-04-28 | Outpatient (CLI) | payer MEDICARE | LOC: BFHH 10:22 | PROVIDERS: ATTEND Family Medicine | DX: D63.8 Anemia in other chronic diseases classified elsewhere (principal) ==

== ENCOUNTER → 2018-04-30 | Outpatient (CLI) | payer MEDICARE | LOC: BFHH 17:09 | PROVIDERS: ATTEND Family Medicine | DX: R30.9 Painful micturition, unspecified (principal) ==

== ENCOUNTER → 2018-05-07 | Outpatient (CLI) | payer MEDICARE | LOC: BFHH 14:07 | PROVIDERS: ATTEND Family Medicine | DX: D63.8 Anemia in other chronic diseases classified elsewhere (principal) ==

== ENCOUNTER → 2018-05-12 | Outpatient (CLI) | payer MEDICARE | LOC: BFHH 10:32 | PROVIDERS: ATTEND Family Medicine | DX: D63.8 Anemia in other chronic diseases classified elsewhere (principal) ==

== ENCOUNTER → 2018-05-19 | Outpatient (CLI) | payer MEDICARE | LOC: BFHH 09:35 | PROVIDERS: ATTEND Family Medicine | DX: D63.8 Anemia in other chronic diseases classified elsewhere (principal) ==